=== PATIENT | male | born 1985 | race African-American/Black ===

== ENCOUNTER 2020-02-21 08:33 | Outpatient (CLI) | payer MEDICAID | END 2020-02-21 08:34 | disposition critical access hospital (66) | LOC: EMS 08:33 | PROVIDERS: ATTEND Surgery | DX: M54.5 Low back pain (principal); R11.10 Vomiting, unspecified | CPT/HCPCS: A0425; A0429 ==

== ENCOUNTER 2020-02-21 08:58 | Emergency (ER) | payer MEDICAID ==
[2020-02-21] MEDS ORDERED: LORazepam 2 MG/ML VIAL IM STA (11:02)
[2020-02-21] MEDS ORDERED: HYDROmorphone 1 MG/ML CARPUJECT IM STA (11:02)
[2020-02-21] MEDS ORDERED: ONDANSETRON ODT 4 MG TABLET TL STA (11:02)
[2020-02-21] MEDS ORDERED: KETOROLAC 60 MG/2 ML VIAL IM STA (11:02)
--- NOTE | 2020-02-21 11:47 | XRAY Report ---
PROCEDURE: Lumbar Spine 2 View INDICATIONS: low back pain/injury TECHNIQUE: 2 views of the lumbar spine were acquired. COMPARISON: None. FINDINGS: Bones: 5 [id number] vertebrae are present. There is normal bony alignment. No vertebral body compression fractures. No suspicious bony lesions. There is moderate disc space narrowing seen at the L4-L5 level. The spinal alignment and spinal curv ature are otherwise within normal limits. Soft tissues: Overlying bowel gas pattern is normal. No suspicious soft tissue calcifications. No te is made of pelvic phleboliths. IMPRESSION: No acute plain film abnormality is seen. Moderate disc space narrowing is seen at the L4-L5 level. Reviewed by: Peter Stoddard MD on 02/21/2020 10:45 AM [facility] Approved by: Peter Stoddard MD on 02/21/2020 10:45 AM [facility] Station ID: [id number]
--- NOTE | 2020-02-21 12:48 | ED Physician Documentation ---
History of Present Illness - Stated complaint Stated Complaint: BACK PAIN - Chief complaint Chief Complaint: Back Pain - History obtained from History obtained from: Patient - Additonal information Additional information: Pt comes to the ED c/o feeling a pop and pain in his L lumbar area yesterday, while moving a mattress. He states he was doing a rotational motion when it happened. No numbness or tingling. No weakness. No loss of bowel or bladder function. Pt does not have chronic back pain. Pt does note that he was nauseated this morning and vomited a couple of times. Review of Systems Ten Systems: 10 systems reviewed and negative Constitutional: reports: Reviewed and negative Eyes: reports: Reviewed and negative Ears: reports: Reviewed and negative Nose: reports: Reviewed and negative Throat: reports: Reviewed and negative Cardiac: reports: Reviewed and negative Respiratory: reports: Reviewed and negative GI: reports: Nausea, Vomiting. denies: Abdominal Pain : reports: Reviewed and negative Skin: reports: Reviewed and negative Musculoskeletal: reports: Back pain Neurologic: reports: Reviewed and negative. denies: Focal weakness, Numbness Psychiatric: reports: Reviewed and negative Endocrine: reports: Reviewed and negative Immunocompromised: reports: Reviewed and negative PD PAST MEDICAL HISTORY - Past Medical History Past Medical History: Yes Cardiovascular: None Respiratory: None Neuro: None Endocrine/Autoimmune: None GI: None : None HEENT: None Psych: None Musculoskeletal: None Derm: None - Past Surgical History Past Surgical History: Yes General: Appendectomy - Present Medications Home Medications: Ambulatory Orders Medication Instructions Recorded Confirmed Cyclobenzaprine [Flexeril] 10 mg PO TID PRN #20 tablet 02/21/20 HYDROcod/ACETAM 5/325 [[place] 5/325] 1 - 2 ea PO Q6H PRN #15 tablet 02/21/20 - Allergies Allergies/Adverse Reactions: Allergies Allergy/AdvReac Type Severity Reaction Status Date / Time ampicillin Allergy Unknown Verified 02/21/20 09:07 - Social History Does the pt smoke?: Yes Smoking Status: Current every day smoker Does the pt drink ETOH?: No Does the pt have substance abuse?: No - Immunizations Immunizations are current?: Yes PD ED PE NORMAL - Vitals Vital signs reviewed: Yes - General General: Alert and oriented X 3, No acute distress - HEENT HEENT: Atraumatic, PERRL, EOMI, Moist mucous membranes - Neck Neck: Supple, no meningeal sign, No bony TTP - Cardiac Cardiac: RRR, No murmur - Respiratory Respiratory: No respiratory distress, Clear bilaterally - Abdomen Abdomen: Soft, Non tender, Non distended - Back Back: No CVA TTP, No spinal TTP, Other (TTP over L lumbar paraspinal musculature. Moderately limited ROM, secondary to pain. Gait somewhat stiff, but narrow-based.) - Derm Derm: Normal color, Warm and dry, No rash - Extremities Extremities: No deformity - Neuro Neuro: Alert and oriented X 3 - Psych Psych: Normal mood, Normal affect Results - Vitals Vitals: Vital Signs - 24 hr 02/21/20 02/21/20 02/21/20 08:59 12:27 12:58 Temperature 35.9 C L 36.9 C 36.1 C L Heart Rate 88 64 84 Respiratory 18 18 16 Rate Blood Pressure 170/92 H 167/104 H 156/98 H O2 Saturation 98 100 100 Oxygen O2 Source Room air - Rads (name of study) lumbar spine XR series Radiology: Final report received, EMP read indepedently, See rad report (neg) PD MEDICAL DECISION MAKING - ED course Complexity details: reviewed old records, reviewed results, re-evaluated patient, considered differential, d/w patient ED course: PT was treated symptomatically with Dilaudid and Toradol. He was worked up with XR series of the lumbar spine, which was negative. I do not find evidence of an emergent cause of the pain. We have discussed that the pt has most likely strained a portion of the muscles/tendons in his back, and that this is expected to blow over on its own, in time. We have discussed home management of the sx, as well as the usual indications for return. Departure - Departure Disposition: 01 Home, Self Care Clinical Impression: Back pain Qualifiers: Back pain location: low back pain Chronicity: acute Back pain laterality: left Sciatica presence: with sciatica Sciatica laterality: sciatica of left side Qualified Code(s): M54.42 - Lumbago with sciatica, left side Low back strain Qualifiers: Encounter type: initial encounter Qualified Code(s): S39.012A - Strain of muscle, fascia and tendon of lower back, initial encounter Condition: Stable Instructions: ED Low Back Pain Injury Prescriptions: Cyclobenzaprine [Flexeril] 10 mg PO TID PRN #20 tablet PRN Reason: Spasms HYDROcod/ACETAM 5/325 [[place] 5/325] 1 - 2 ea PO Q6H PRN #15 tablet PRN Reason: Pain Comments: Your x-rays look good. You have strained your back, and given the type of twisting injury that you had, this is most likely a muscular issue. However, if your pain goes on for more than the next 1 to 2 weeks, you should follow-up with your primary care physician to discuss having an MRI done to look at other structures, such as your discs. Please take the pain medication and muscle relaxing medication as needed. Discharge Date/Time: 02/21/20 12:59
[2020-02-21 12:59] VITALS: BP 156/98
== END 2020-02-21 12:59 | disposition home or self-care (01) ==
LOC: EDUNIT# → ED 08:58
DX: S39.012A Strain of muscle, fascia and tendon of lower back, initial encounter (principal); X50.1XXA Overexertion from prolonged static or awkward postures, initial encounter; Y93.89 Activity, other specified; M54.42 Lumbago with sciatica, left side; F17.200 Nicotine dependence, unspecified, uncomplicated
CPT/HCPCS: 72100; 96372; 99283; 99284; J1170; Q0162

== ENCOUNTER 2022-07-24 16:23 | Outpatient (CLI) | payer MEDICAID ==
--- NOTE | 2022-07-24 15:47 | XRAY Report ---
PROCEDURE: Shoulder 3 View RT INDICATIONS: RIGHT SHOULDER PAIN TECHNIQUE: 4 views of the shoulder were acquired. COMPARISON: None. FINDINGS: Bones: No fractures or dislocations. No suspicious bony lesions. Visualized ribs appear intact. Soft tissues: No suspicious soft tissue calcifications. IMPRESSION: No fracture. No osseous lesion. If symptoms and/or clinical concern for pathology persis ts, further assessment with repeat plain film radiographs (7-10 days) or advanced imaging (CT, MR, walter ne scan) should be considered. Reviewed by: Pearl Farfan MD, PhD on 07/24/2022 3:45 PM PST Approved by: Pearl Farfan MD, PhD on 07/24/2022 3:45 PM PST Station ID: [id number]
== END 2022-07-24 16:24 | disposition home or self-care (01) ==
LOC: DI.WOS 16:23
PROVIDERS: ATTEND Physician Assistant Surgical
DX: M25.511 Pain in right shoulder (principal)